=== PATIENT | male | born 1980 | race American Indian/Alaskan Native ===

== ENCOUNTER 2016-10-16 10:02 | Emergency (ER) | payer SELFPAY ==
--- NOTE | 2016-10-16 10:33 | Emergency Department Report ---
Chief Complaint: Abdominal Pain Stated Complaint: CHEST PAIN Time Seen by Provider: 10/16/16 10:20 - HPI History of Present Illness: Patient is a 36-year-old male who presents to the ED complaining of chest pain and abdominal pain since Friday. Patient states he has pain all over his chest and all over his abdomen. Patient admits nausea and vomiting. Patient's is a physically there is are not in the stomach. Patient admits the pain is constant. Patient rates the pain 10 out of 10. Denies fevers/chills/headache specialist of breath - ROS Review of Systems: As noted in HPI - Exam Vital Signs: Vital Signs 10/16/16 10:03 Temperature 97.7 F Pulse Rate 46 L Respiratory 24 Rate Blood Pressure 122/87 O2 Sat by Pulse 100 Oximetry Physical Exam: GENERAL: Alert and oriented x3, no apparent distress, Normal Gait, atraumatic. HEAD: Head is normocephalic and a-traumatic. NECK: Supple. Non edematous, No carotid bruits. No lymphadenopathy or thyromegaly. LUNGS: Symetrical with respiration, No wheezing, no rales or crackles, CTAB. HEART: S1, S2 present, regular rate and rhythm without murmur, no rubs, no gallops. Tender to palpation of left upper chest ABDOMEN: No organomegaly was noted,Positive bowel sounds, soft, and non- distended. . Tender to palpation on all Quadrants, NO CVA tenderness. SKIN: Warm and dry, No lesions, No ulceration or induration present. MSE screening note: Focused history and physical exam performed. Due to findings the following was ordered: ED Medical Decision Making - Lab Data Result diagrams: 10/16/16 10:47 10/16/16 10:47 - Medical Decision Making Chest and protocol and abdominal pain protocol ordered. Patient to be seen by ED physician. Zofran 16 mg ordered. ED Disposition for MSE Condition: Stable
[2016-10-16] MEDS ORDERED: ZOFRAN ODT PO ONE (10:39)
[2016-10-16 11:01] LABS: Basophils % (Auto) 0.7 % (0.0-1.8); Eosinophils % (Auto) 0.3 % (0.0-4.3); Hematocrit 46.5 % (35.5-45.6); Hemoglobin 15.7 gm/dl (11.8-15.2); Mean Corpuscular HGB Conc 34 % (32-34); Mean Corpuscular Hemoglobin 32 pg (28-32); Mean Corpuscular Volume 95 fl (84-94); Platelet Count 235 K/mm3 (140-440); Red Blood Count 4.88 M/mm3 (3.65-5.03); Red Cell Distribution Width 13.6 % (13.2-15.2); White Blood Count 6.9 K/mm3 (4.5-11.0)
[2016-10-16 11:24] LABS: Alanine Aminotransferase 25 units/L (7-56); Albumin 4.3 g/dL (3.9-5); Albumin/Globulin Ratio 1.3 %; Alkaline Phosphatase 60 units/L (35-129); Anion Gap 18 mmol/L; BUN/Creatinine Ratio 13.33; Bilirubin,Total 0.4 mg/dL (0.1-1.2); Blood Urea Nitrogen 12 mg/dL (9-20); Calcium 9.5 mg/dL (8.4-10.2); Carbon Dioxide 24 mmol/L (22-30); Chloride 98.4 mmol/L (98-107); Glucose 120 mg/dL (75-100); Lipase 45 units/L (13-60); Potassium 3.6 mmol/L (3.6-5.0); Sodium 137 mmol/L (137-145); Total Protein 7.6 g/dL (6.3-8.2)
[2016-10-16 13:09] VITALS: BP 125/63
[2016-10-16] MEDS ORDERED: MORPHINE IV ONE (13:39)
[2016-10-16] MEDS ORDERED: NACL 0.9% 1000 ML IV ONE ×2 (13:39→15:09)
[2016-10-16] MEDS ORDERED: ZOFRAN IV ONE (13:39)
--- NOTE | 2016-10-16 13:57 | Emergency Department Report ---
HPI - General Chief Complaint: Abdominal Pain Time Seen by Provider: 10/16/16 13:38 - HPI HPI: Chief complaint: Nausea vomiting abdominal pain HPI: Patient is a 36-year-old male whose complaining of epigastric abdominal pain and nausea and vomiting especially after eating since Friday. Patient denies diarrhea or melena. Patient denies previous history of abdominal surgery and states he drinks no more than 28 ounce beers today. Mode of arrival: [private car] Source: [Patient] Began: 2 days ago Duration: 2 days Context: See above Quality: Constant sharp upper abdominal pain Severity: 10 out of 10 Improved with: After vomiting patient states the pain is improved Worsened with: Vomiting worse after eating Associated signs and symptoms: See above ED Past Medical Hx - Past Medical History Previous Medical History?: No - Surgical History Past Surgical History?: No - Social History Smoking Status: Current Every Day Smoker Substance Use Type: Alcohol - Medications Home Medications: Home Medications Medication Instructions Recorded Confirmed Last Taken Type Metoclopramide [Reglan] 10 mg PO TID PRN #7 tab 10/16/16 Unknown Rx Omeprazole Magnesium [PriLOSEC Otc] 20 mg PO QDAY #10 tablet. 10/16/16 Unknown Rx ED Review of Systems ROS: Stated complaint: CHEST PAIN Other details as noted in HPI ROS Constitutional: No fever ENT: No uri symptoms Cardiovascular: No chest pain Respiratory: No sob or cough GI: See HPI : No dysuria frequency or urgency, Skin: No rash Neuro: No focal weakness or numbness Psych: No depression Deion/lymph: No edema Physical Exam - Physical Exam Vital Signs: Vital Signs 10/16/16 10/16/16 10:03 13:03 Temperature 97.7 F 97.8 F Pulse Rate 46 L 50 L Respiratory 24 16 Rate Blood Pressure 122/87 Blood Pressure 125/63 [Right] O2 Sat by Pulse 100 97 Oximetry Physical Exam: GENERAL: The patient is well-developed well-nourished. HEENT: Normocephalic. Atraumatic. Extraocular motions are intact. Patient has moist mucous membranes. NECK: Supple. No meningitic signs are noted. There is no adenopathy noted. CHEST/LUNGS: Clear to auscultation. There is no respiratory distress noted. HEART/CARDIOVASCULAR: Regular. There is no tachycardia. There is no gallop rub or murmur. ABDOMEN: Abdomen is soft, epigastric tenderness. Voluntary guarding no rebound. Patient has normal bowel sounds. There is no abdominal distention. SKIN: There is no rash. There is no edema. There is no diaphoresis. NEURO: The patient is awake, alert, and oriented. The patient is cooperative. The patient has no focal neurologic deficits. The patient has normal speech. MUSCULOSKELETAL: There is no tenderness or deformity. There is no limitation range of motion. There is no evidence of acute injury. ED Course Vital Signs 10/16/16 10/16/16 10:03 13:03 Temperature 97.7 F 97.8 F Pulse Rate 46 L 50 L Respiratory 24 16 Rate Blood Pressure 122/87 Blood Pressure 125/63 [Right] O2 Sat by Pulse 100 97 Oximetry - Reevaluation(s) Reevaluation #1: 10/16/16 15:10 Patient given a liter normal saline, Zofran and 4 mg of IV morphine with some improvement. 10/16/16 15:59 Patient was improved but has not urinated so another liter of normal saline was given along with some protonix and Reglan. Patient is improving. ED Medical Decision Making - Lab Data Result diagrams: 10/16/16 10:47 10/16/16 10:47 Laboratory Tests 10/16/16 10/16/16 10:47 13:16 Troponin T < 0.010 < 0.010 Lipase 45 - EKG Data -: EKG Interpreted by Wy EKG shows normal: sinus rhythm Rate: bradycardia (50) - EKG Data When compared to previous EKG there are: previous EKG unavailable Interpretation: LVH - Radiology Data Radiology results: report reviewed (CAT scan shows no acute process.) Critical care attestation.: If time is entered above; I have spent that time in minutes in the direct care of this critically ill patient, excluding procedure time. ED Disposition Clinical Impression: Abdominal pain Qualifiers: Abdominal location: right upper quadrant Qualified Code(s): R10.11 - Right upper quadrant pain Disposition: DISCHARGED TO HOME OR SELFCARE Is pt being admited?: No Does the pt Need Aspirin: No Condition: Stable Instructions: Acute Nausea and Vomiting (ED), Gastroesophageal Reflux Disease ( ED) Prescriptions: Metoclopramide [Reglan] 10 mg PO TID PRN #7 tab PRN Reason: Nausea And Vomiting Omeprazole Magnesium [PriLOSEC Otc] 20 mg PO QDAY #10 tablet. Referrals: [facility] [Provider Group] - 7-10 days Time of Disposition: 16:03
--- NOTE | 2016-10-16 14:03 | XRay Report ---
ABDOMEN RADIOGRAPHS INDICATION: Abdominal pain. COMPARISON: None similar. FINDINGS: Supine and upright abdominal radiographs demonstrate nonobstructive bowel gas pattern. No focal suspicious calcifications, pneumatosis or pneumoperitoneum. Mild ascending colon and rectal stool. Clear visualized lung bases. Unremarkable bones. CONCLUSION: Normal abdominal radiographs, as described. Thank you for the opportunity to participate in this patient's care.
[2016-10-16] MEDS ORDERED: NACL ONE (14:25)
--- NOTE | 2016-10-16 14:53 | XRay Report ---
CHEST 2 VIEWS INDICATION: Pain, shortness of breath. COMPARISON: None similar at this institution. FINDINGS: PA and lateral chest radiographs demonstrate normal cardiomediastinal silhouette. Clear lungs. Intact bones. CONCLUSION: No acute disease in the chest. Thank you for the opportunity to participate in this patient's care.
[2016-10-16] MEDS ORDERED: REGLAN IV ONE (15:06)
[2016-10-16] MEDS ORDERED: PROTONIX IV ONE (15:09)
--- NOTE | 2016-10-16 15:16 | Cat Scan Report ---
CT ABDOMEN AND PELVIS WITH CONTRAST INDICATION: Abdominal pain. COMPARISON: None similar. FINDINGS: Abdomen and pelvis CT performed following intravenous administration of 100 cc of Omnipaque 300. LUNG BASES: Normal heart size. No effusions. Nonspecific distal esophageal wall thickening, not excluded for gastroesophageal reflux and/or hiatal hernia, amongst others. ABDOMEN: Liver, spleen, gallbladder, pancreas, adrenals, nonaneurysmal abdominal aorta, IVC and kidneys are within normal limits bilaterally without hydronephrosis, ascites or size significant adenopathy. Nonopacified GI tract evaluation limited, though grossly nonobstructive. Normal appendix. Mild colonic stool, most along the ascending colon. Distal ascending colon about the hepatic flexure as on axial series 2, images 126-160 nondistended and hence nonspecific with subtle exaggerated wall thickness. PELVIS: Urinary bladder, seminal vesicles and prostate within normal limits. Right hemipelvic phlebolith. Rectosigmoid stool. No free fluid or significant adenopathy. No acute significant osseous finding. CONCLUSION: No convincing acute CT abnormality with distal esophageal thickening noted as also nonspecific CT appearance about the hepatic flexure with questionable wall thickening/subtle colitis versus suboptimal distention. Thank you for the opportunity to participate in this patient's care.
[2016-10-16 16:20] LABS: Urine Drugs of Abuse Note Disclamer
[2016-10-16 16:39] LABS: Bilirubin,Urine NEG (Negative); Blood,Urine NEG (Negative); Ketones,Urine TR mg/dL (Negative); Leukocyte Esterase,Urine NEG (Negative); Mucus,Urine FEW /HPF; Nitrite,Urine NEG (Negative); Protein,Urine <15 mg/dL mg/dL (Negative); Urobilinogen,Urine < 2.0 mg/dL (<2.0)
== END 2016-10-16 17:20 | disposition home or self-care (01) ==
LOC: ED 10:02
DX: R10.11 Right upper quadrant pain (principal); F17.200 Nicotine dependence, unspecified, uncomplicated
CPT/HCPCS: 36415; 71020; 74020; 74177; 80053; 80307; 81001; 83690; 84484; 85025; 93005; 93010; 96374; 96375; 99284; C9113; J2270; J2405; J2765; J7030; Q9967; Q0162

== ENCOUNTER 2016-12-26 08:13 | Emergency (ER) | payer OTHER ==
[2016-12-26 09:05] LABS: Basophils % (Auto) 0.4 % (0.0-1.8); Eosinophils % (Auto) 0.2 % (0.0-4.3); Hematocrit 51.4 % (35.5-45.6); Hemoglobin 17.5 gm/dl (11.8-15.2); Mean Corpuscular HGB Conc 34 % (32-34); Mean Corpuscular Hemoglobin 32 pg (28-32); Mean Corpuscular Volume 95 fl (84-94); Platelet Count 246 K/mm3 (140-440); Red Blood Count 5.42 M/mm3 (3.65-5.03); Red Cell Distribution Width 13.6 % (13.2-15.2); White Blood Count 8.5 K/mm3 (4.5-11.0)
[2016-12-26 09:12] LABS: Anion Gap 20 mmol/L; BUN/Creatinine Ratio 13.33; Blood Urea Nitrogen 12 mg/dL (9-20); Calcium 10.2 mg/dL (8.4-10.2); Carbon Dioxide 33 mmol/L (22-30); Glucose 101 mg/dL (75-100); Potassium 4.8 mmol/L (3.6-5.0); Sodium 138 mmol/L (137-145)
[2016-12-26 09:37] LABS: Bacteria,Urine 1+ /HPF (Negative); Bilirubin,Urine NEG (Negative); Blood,Urine NEG (Negative); Ketones,Urine TR mg/dL (Negative); Leukocyte Esterase,Urine NEG (Negative); Mucus,Urine 3+ /HPF; Nitrite,Urine NEG (Negative)
[2016-12-26] MEDS ORDERED: BENTYL IM ONE (13:26)
[2016-12-26] MEDS ORDERED: ZOFRAN IV ONE (13:26)
[2016-12-26] MEDS ORDERED: PEPCID IV ONE (13:26)
[2016-12-26] MEDS ORDERED: ATIVAN IV ONE (13:26)
[2016-12-26] MEDS ORDERED: NACL 0.9% 1000 ML 1,000 ML IV ONE (13:27)
--- NOTE | 2016-12-26 13:27 | Emergency Department Report ---
ED General Adult HPI - General Chief complaint: Chest Pain Stated complaint: GURD/CHEST PAIN Time Seen by Provider: 12/26/16 13:18 Source: patient, RN notes reviewed, old records reviewed Mode of arrival: Ambulatory Limitations: No Limitations - History of Present Illness Initial comments: This is a 36-year-old male. He is previously unknown to me. He does not have a primary care doctor. He is a presumptive diagnosis of GERD, although he has not had formal egd. He is a recreational cannabis user. The patient presents to the ER today complaining of epigastric chest pain, abdominal pain, nausea and vomiting. Symptoms started on Friday. He reports his abdominal pain is crampy and diffuse. He reports consuming quite a bit of cannabis. He does not use cocaine. There is no leg pain. There is no leg swelling. No recent trips greater than 4 hours. No recent hospital admissions. The patient reports he has not consumed aspirin within the past 7 days. There is no family history of cardiac disease that he is aware of. Patient reports his symptoms markedly improve when he takes a hot shower. The patient was seen at this hospital for similar symptoms in the [place] 2016, and had a CT scan of the abdomen and pelvis with IV contrast which demonstrated "no convincing acute CT abnormality with distal esophageal thickening noted has also nonspecific CT periods about the hepatic flexure with questionable wall thickening/subtle colitis versus suboptimal distention." The patient reports that he can do a lot of heavy lifting at baseline, he works out quite a bit, he describes no change and unlimited exercise tolerance. He is not homicidal, he is not suicidal. -: Gradual Location: chest, abdomen Quality: aching Consistency: intermittent Improves with: other (per hpi) Worsens with: other (pernhpi) Associated Symptoms: chest pain, nausea/vomiting. denies: shortness of breath - Related Data Previous Rx's Medication Instructions Recorded Last Taken Type Metoclopramide [Reglan] 10 mg PO TID PRN #7 tab 10/16/16 Unknown Rx Omeprazole Magnesium [PriLOSEC Otc] 20 mg PO QDAY #10 tablet. 10/16/16 Unknown Rx Dicyclomine [Bentyl] 10 mg PO QID PRN #20 capsule 12/26/16 Unknown Rx Famotidine [Pepcid] 20 mg PO QDAY #30 tablet 12/26/16 Unknown Rx Ondansetron [Zofran Odt] 4 mg PO QID PRN #20 tab.rapdis 12/26/16 Unknown Rx Promethazine [Phenergan SUPPOS] 50 mg DE Q6H PRN #20 supp.rect 12/26/16 Unknown Rx Allergies Allergy/AdvReac Type Severity Reaction Status Date / Time No Known Allergies Allergy Unverified 10/16/16 10:16 ED Review of Systems ROS: Stated complaint: GURD/CHEST PAIN Other details as noted in HPI Constitutional: denies: fever Eyes: denies: vision change ENT: denies: epistaxis Respiratory: denies: cough Cardiovascular: chest pain Gastrointestinal: abdominal pain, nausea, vomiting Genitourinary: denies: testicular pain Skin: denies: lesions Neurological: denies: headache Psychiatric: denies: homicidal thoughts, suicidal thoughts ED Past Medical Hx - Past Medical History Hx GERD: Yes - Surgical History Past Surgical History?: No - Social History Smoking Status: Former Smoker Substance Use Type: Alcohol - Medications Home Medications: Home Medications Medication Instructions Recorded Confirmed Last Taken Type Metoclopramide [Reglan] 10 mg PO TID PRN #7 tab 10/16/16 Unknown Rx Omeprazole Magnesium [PriLOSEC Otc] 20 mg PO QDAY #10 tablet. 10/16/16 Unknown Rx Dicyclomine [Bentyl] 10 mg PO QID PRN #20 capsule 12/26/16 Unknown Rx Famotidine [Pepcid] 20 mg PO QDAY #30 tablet 12/26/16 Unknown Rx Ondansetron [Zofran Odt] 4 mg PO QID PRN #20 tab.rapdis 12/26/16 Unknown Rx Promethazine [Phenergan SUPPOS] 50 mg DE Q6H PRN #20 supp.rect 12/26/16 Unknown Rx ED Physical Exam - General Limitations: No Limitations General appearance: alert, in no apparent distress - Head Head exam: Present: atraumatic, normocephalic - Eye Eye exam: Present: normal appearance, EOMI. Absent: nystagmus - ENT ENT exam: Present: normal exam, normal orophraynx, mucous membranes moist, normal external ear exam - Neck Neck exam: Present: normal inspection, full ROM. Absent: tenderness, meningismus - Respiratory Respiratory exam: Present: normal lung sounds bilaterally. Absent: respiratory distress, wheezes, rales, rhonchi, stridor, chest wall tenderness, accessory muscle use, decreased breath sounds, prolonged expiratory - Cardiovascular Cardiovascular Exam: Present: regular rate, normal rhythm, normal heart sounds. Absent: bradycardia, tachycardia, irregular rhythm, systolic murmur, diastolic murmur, rubs, gallop - GI/Abdominal GI/Abdominal exam: Present: soft, normal bowel sounds. Absent: distended, tenderness, guarding, rebound, rigid, pulsatile mass - Rectal Rectal exam: Present: deferred - Extremities Exam Extremities exam: Present: normal inspection, full ROM, normal capillary refill. Absent: tenderness, pedal edema, joint swelling, calf tenderness - Back Exam Back exam: Present: normal inspection, full ROM. Absent: tenderness, CVA tenderness (R), CVA tenderness (L), muscle spasm, paraspinal tenderness, vertebral tenderness - Neurological Exam Neurological exam: Present: alert, oriented X3, normal gait, other (Extraocular movements intact. Tongue midline. No facial droop. Facial sensation intact to light touch in the V1, V2, V3 distribution bilaterally. 5 and 5 strength in 4 extremities.. Sensation is intact to light touch in 4 extremities.). Absent : motor sensory deficit - Psychiatric Psychiatric exam: Present: normal affect, normal mood. Absent: homicidal ideation, suicidal ideation - Skin Skin exam: Present: warm, dry, intact, normal color. Absent: rash ED Course Vital Signs 12/26/16 12/26/16 12/26/16 08:30 14:00 14:22 Temperature 98.2 F Pulse Rate 70 67 Respiratory 18 16 16 Rate Blood Pressure 128/92 Blood Pressure 130/87 [Left] O2 Sat by Pulse 99 100 97 Oximetry 12/26/16 12/26/16 12/26/16 14:54 14:56 14:58 Temperature Pulse Rate Respiratory Rate Blood Pressure 130/87 130/87 130/87 Blood Pressure [Left] O2 Sat by Pulse 97 97 96 Oximetry 12/26/16 12/26/16 12/26/16 14:59 15:00 15:02 Temperature Pulse Rate Respiratory Rate Blood Pressure 107/73 122/68 122/68 Blood Pressure [Left] O2 Sat by Pulse 96 95 95 Oximetry 12/26/16 12/26/16 12/26/16 15:04 15:06 15:08 Temperature Pulse Rate Respiratory Rate Blood Pressure 122/68 122/68 122/68 Blood Pressure [Left] O2 Sat by Pulse 96 97 97 Oximetry 12/26/16 12/26/16 12/26/16 15:09 15:10 15:12 Temperature Pulse Rate 74 Respiratory 14 Rate Blood Pressure 122/68 122/68 Blood Pressure 126/79 [Left] O2 Sat by Pulse 96 98 98 Oximetry 12/26/16 12/26/16 12/26/16 15:14 15:16 15:18 Temperature Pulse Rate Respiratory Rate Blood Pressure 122/68 122/68 122/68 Blood Pressure [Left] O2 Sat by Pulse 98 98 96 Oximetry 12/26/16 12/26/16 12/26/16 15:20 15:22 15:24 Temperature Pulse Rate Respiratory Rate Blood Pressure 122/68 122/68 122/68 Blood Pressure [Left] O2 Sat by Pulse 96 97 97 Oximetry 12/26/16 12/26/16 12/26/16 15:26 15:28 15:30 Temperature Pulse Rate Respiratory Rate Blood Pressure 122/68 122/68 124/78 Blood Pressure [Left] O2 Sat by Pulse 97 97 97 Oximetry 12/26/16 12/26/16 12/26/16 15:32 15:34 15:36 Temperature Pulse Rate Respiratory Rate Blood Pressure 124/78 124/78 124/78 Blood Pressure [Left] O2 Sat by Pulse 97 97 96 Oximetry 12/26/16 12/26/16 12/26/16 15:38 15:40 15:42 Temperature Pulse Rate Respiratory Rate Blood Pressure 124/78 124/78 124/78 Blood Pressure [Left] O2 Sat by Pulse 96 96 96 Oximetry 12/26/16 12/26/16 12/26/16 15:44 15:46 15:48 Temperature Pulse Rate Respiratory Rate Blood Pressure 124/78 124/78 124/78 Blood Pressure [Left] O2 Sat by Pulse 96 96 96 Oximetry 12/26/16 12/26/16 12/26/16 15:50 15:52 15:54 Temperature Pulse Rate Respiratory Rate Blood Pressure 124/78 124/78 124/78 Blood Pressure [Left] O2 Sat by Pulse 96 96 96 Oximetry 12/26/16 12/26/16 12/26/16 15:56 15:58 16:00 Temperature Pulse Rate Respiratory Rate Blood Pressure 124/78 124/78 103/65 Blood Pressure [Left] O2 Sat by Pulse 96 96 96 Oximetry 12/26/16 12/26/16 12/26/16 16:02 16:04 16:06 Temperature Pulse Rate Respiratory Rate Blood Pressure 103/65 103/65 103/65 Blood Pressure [Left] O2 Sat by Pulse 96 96 96 Oximetry 12/26/16 12/26/16 12/26/16 16:08 16:10 16:12 Temperature Pulse Rate Respiratory Rate Blood Pressure 103/65 103/65 103/65 Blood Pressure [Left] O2 Sat by Pulse 96 96 96 Oximetry 12/26/16 12/26/16 12/26/16 16:14 16:16 16:18 Temperature Pulse Rate Respiratory Rate Blood Pressure 103/65 103/65 103/65 Blood Pressure [Left] O2 Sat by Pulse 96 97 97 Oximetry 12/26/16 12/26/16 12/26/16 16:20 16:22 16:24 Temperature Pulse Rate Respiratory Rate Blood Pressure 103/65 103/65 103/65 Blood Pressure [Left] O2 Sat by Pulse 97 97 96 Oximetry 12/26/16 12/26/16 12/26/16 16:26 16:28 16:30 Temperature Pulse Rate Respiratory Rate Blood Pressure 103/65 103/65 108/72 Blood Pressure [Left] O2 Sat by Pulse 97 96 95 Oximetry - Reevaluation(s) Reevaluation #1: 12/26/16 14:24 Differential diagnosis: GERD, gastritis, pancreatitis, pneumonia, acute coronary syndrome, cyclic vomiting syndrome, cannabinoid hyperemesis syndrome Assessment and plan: 36-year-old male with abdominal pain, chest pain, nausea and vomiting. Patient had a CT scan at this facility a few months ago. He is afebrile with reassuring vital signs, low risk by JOVITA score, low risk by heart score, no pulmonary embolus or DVT risk factors, low risk by well's criteria, perc negative, and has unlimited exercise tolerance and is very physically well- developed. The patient is at very low risk for major adverse cardiac event. Symptoms also the consistent with cannabinoid hyperemesis syndrome. He is clinically sober at this time, and does not require 1013. He will be treated symptomatically. Serial EKGs are abnormal with left ventricular hypertrophy, borderline left bundle branch block, but not morphologically consistent with STEMI, and negative by [facility] criteria. The patient will be treated symptomatically, and we will discuss with cardiology , although I think the patient would be best served to follow up with outpatient gastroenterology, and to discontinue cannabis consumption. Reevaluation #2: 12/26/16 16:30 Patient has been observed in the emergency department for a prolonged period of time. He is able to tolerate liquid feeds. No active vomiting. Belly soft on repeat examination. The patient's EKGs are reviewed by the construction superintendent, Dr. Stacy Martinez, who agrees the patient is suitable to follow up as an outpatient for his abnormal EKG. ED Medical Decision Making - Lab Data Result diagrams: 12/26/16 08:38 12/26/16 08:38 Vital Signs 12/26/16 12/26/16 08:30 14:22 Temperature 98.2 F Pulse Rate 70 67 Respiratory 18 16 Rate Blood Pressure 128/92 Blood Pressure 130/87 [Left] O2 Sat by Pulse 99 97 Oximetry Labs 12/26/16 12/26/16 12/26/16 08:38 08:38 08:38 WBC 8.5 RBC 5.42 H Hgb 17.5 H Hct 51.4 H MCV 95 H MCH 32 MCHC 34 RDW 13.6 Plt Count 246 Lymph % (Auto) 31.0 [place] % (Auto) 13.8 H Eos % (Auto) 0.2 Baso % (Auto) 0.4 Lymph # 2.6 [place] # 1.2 H Eos # 0.0 Baso # 0.0 Seg Neutrophils % 54.6 Seg Neutrophils # 4.6 Sodium 138 Potassium 4.8 Chloride 90.0 L Carbon Dioxide 33 H Anion Gap 20 BUN 12 Creatinine 0.9 Estimated GFR > 60 BUN/Creatinine Ratio 13.33 Glucose 101 H Calcium 10.2 Troponin T < 0.010 Lipase 32 Urine Color Urine Turbidity Urine pH Ur Specific [place] Urine Protein Urine Glucose (UA) Urine Ketones Urine Blood Urine Nitrite Urine Bilirubin Urine Urobilinogen Ur Leukocyte Esterase Urine WBC (Auto) Urine RBC (Auto) Urine Bacteria (Auto) Urine Mucus 12/26/16 12/26/16 09:29 11:44 WBC RBC Hgb Hct MCV MCH MCHC RDW Plt Count Lymph % (Auto) [place] % (Auto) Eos % (Auto) Baso % (Auto) Lymph # [place] # Eos # Baso # Seg Neutrophils % Seg Neutrophils # Sodium Potassium Chloride Carbon Dioxide Anion Gap BUN Creatinine Estimated GFR BUN/Creatinine Ratio Glucose Calcium Troponin T < 0.010 Lipase Urine Color [place] Urine Turbidity Clear Urine pH 6.0 Ur Specific [place] 1.031 H Urine Protein 100 mg/dl Urine Glucose (UA) Neg Urine Ketones Tr Urine Blood Neg Urine Nitrite Neg Urine Bilirubin Neg Urine Urobilinogen 4.0 Ur Leukocyte Esterase Neg Urine WBC (Auto) 2.0 Urine RBC (Auto) 3.0 Urine Bacteria (Auto) 1+ Urine Mucus 3+ - EKG Data 12/26/16 14:26 EKG #1: Sinus bradycardia, left ventricular hypertrophy, borderline left bundle branch block, normal axis, normal intervals, not morphologically consistent with STEMI, when compared to prior EKG, nonspecific changes, LVH appears to be more prominent. EKG #2 demonstrates sinus bradycardia, 54 bpm, normal axis, normal intervals, persistent LVH, not morphologically consistent with STEMI, essentially unchanged from prior EKGs. - Radiology Data Radiology results: pending, image reviewed Critical care attestation.: If time is entered above; I have spent that time in minutes in the direct care of this critically ill patient, excluding procedure time. ED Disposition Clinical Impression: Abdominal pain Disposition: DISCHARGED TO HOME OR SELFCARE Is pt being admited?: No Does the pt Need Aspirin: No Condition: Stable Instructions: Cannabis Abuse (ED) Additional Instructions: Take the medications as directed. Avoid consumption of marijuana. This is the most likely etiology of your pain. Follow-up with either a primary care doctor or hack driver within the next [address] Alvarez is a local hack driver. Dr. Hendrix is a local primary care doctor. EKG demonstrated nonspecific abnormalities, these should be followed up by either primary care or cardiology within the next 2-[address] Hendrix is a local primary care doctor. Dr. Martinez is a local primary care construction superintendent. Return to the ER right away with new pain, worsened pain, migration of pain, fevers or chills, intractable nausea or vomiting, inability to tolerate liquid feeds. Prescriptions: Dicyclomine [Bentyl] 10 mg PO QID PRN #20 capsule PRN Reason: Pain Famotidine [Pepcid] 20 mg PO QDAY #30 tablet Ondansetron [Zofran Odt] 4 mg PO QID PRN #20 tab.rapdis PRN Reason: Nausea Promethazine [Phenergan SUPPOS] 50 mg DE Q6H PRN #20 supp.rect PRN Reason: Nausea Referrals: PRIMARY CARE, [Primary Care Provider] - 3-5 Days EDIE ALVAREZ MD [Staff Physician] - 3-5 Days SANJIV MARTINEZ MD [Staff Physician] - 3-5 Days NATALIO HENDRIX MD [Staff Physician] - 3-5 Days
--- NOTE | 2016-12-26 14:48 | XRay Report ---
CHEST ONE VIEW INDICATION: Chest pain. COMPARISON: 10/16/2016. FINDINGS: Portable, single, frontal chest radiograph demonstrates normal cardiomediastinal silhouette. Clear lungs. Unremarkable bones. CONCLUSION: No acute disease in the chest. Thank you for the opportunity to participate in this patient's care.
[2016-12-26 16:37] VITALS: BP 108/72
== END 2016-12-26 17:30 | disposition home or self-care (01) ==
LOC: ED 08:13
DX: R10.13 Epigastric pain (principal); K21.9 Gastro-esophageal reflux disease without esophagitis; Z87.891 Personal history of nicotine dependence
CPT/HCPCS: 36415; 71010; 80048; 81001; 83690; 84484; 85025; 93005; 93010; 96361; 96374; 96375; 99285; J0500; J2060; J2405; J7030

== ENCOUNTER 2017-03-10 12:09 | Emergency (ER) | payer OTHER ==
[2017-03-10 12:18] VITALS: BP 116/75
[2017-03-10] MEDS ORDERED: MOTRIN PO ONE (15:30)
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
== END 2017-03-10 17:02 | disposition home or self-care (01) ==
LOC: ED 12:09
DX: S16.1XXA Strain of muscle, fascia and tendon at neck level, initial encounter (principal); S13.4XXA Sprain of ligaments of cervical spine, initial encounter; K21.9 Gastro-esophageal reflux disease without esophagitis; F17.200 Nicotine dependence, unspecified, uncomplicated; F12.10 Cannabis abuse, uncomplicated; V49.49XA Driver injured in collision with other motor vehicles in traffic accident, initial encounter; Y93.9 Activity, unspecified; Y92.9 Unspecified place or not applicable; Y99.9 Unspecified external cause status
CPT/HCPCS: 72125; 99283

== ENCOUNTER 2019-01-16 16:21 | Inpatient (IN) | payer MEDICAID, OTHER ==
[2019-01-16] MEDS ORDERED: ZOFRAN IV ONE (16:59)
[2019-01-16] MEDS ORDERED: MORPHINE IV ONE (16:59)
[2019-01-16] MEDS ORDERED: NACL 0.9% 1000 ML IV ONE (16:59)
[2019-01-16] MEDS ORDERED: PEPCID IV ONE (17:01)
--- NOTE | 2019-01-16 17:02 | Emergency Department Report ---
ED General Adult HPI - General Chief complaint: Nausea/Vomiting/Diarrhea Stated complaint: N/V Time Seen by Provider: 01/16/19 16:49 Source: patient, EMS (ems notes not available at time of chart dictation), RN notes reviewed, old records reviewed Mode of arrival: Ambulatory Limitations: Physical Limitation - History of Present Illness Initial comments: This is a 38-year-old gentleman. I have evaluated this patient in the past. He does not have a local primary care doctor. He may have a history of GERD, gastritis. He reports that he personally does not consume cannabis. He reports that family members around him do consume cannabis. He presents to the emergency room with a complaint of abdominal pain. The abdominal pain is left lower quadrant. It radiates to the epigastric region. He describes multiple episodes of nonbloody, nonbilious emesis. He denies diarrhea. He denies testicular pain. He denies urinary symptoms. He reports left-sided chest pain, left-sided nontraumatic paracervical neck pain. He denies DVT, pulmonary embolus risk factors. He reports she's had similar symptoms like this in the past. He reports symptoms occasionally improved with taking a hot bath, or a hot shower. -: Gradual, days(s) Location: chest, abdomen Radiation: neck Quality: aching Consistency: constant Improves with: medication Worsens with: eating, movement - Related Data Home Medications Medication Instructions Recorded Confirmed Last Taken No Known Home Medications [No 01/17/19 01/17/19 Unknown Reported Home Medications] Allergies Allergy/AdvReac Type Severity Reaction Status Date / Time No Known Allergies Allergy Unverified 10/16/16 10:16 ED Review of Systems ROS: Stated complaint: N/V Other details as noted in HPI Constitutional: fever, malaise, weakness Eyes: denies: vision change ENT: denies: epistaxis Respiratory: denies: cough Cardiovascular: chest pain Gastrointestinal: nausea, vomiting Genitourinary: denies: testicular pain Musculoskeletal: back pain, arthralgia, myalgia Skin: denies: lesions Neurological: weakness Psychiatric: anxiety ED Past Medical Hx - Past Medical History Previous Medical History?: Yes Hx GERD: Yes - Surgical History Past Surgical History?: No - Social History Smoking Status: Former Smoker Substance Use Type: Alcohol, Marijuana - Medications Home Medications: Home Medications Medication Instructions Recorded Confirmed Last Taken Type No Known Home Medications [No 01/17/19 01/17/19 Unknown History Reported Home Medications] ED Physical Exam - General Limitations: No Limitations General appearance: alert, anxious - Head Head exam: Present: atraumatic, normocephalic - Eye Eye exam: Present: normal appearance, EOMI. Absent: nystagmus - ENT ENT exam: Present: normal exam, normal orophraynx, mucous membranes moist, normal external ear exam - Neck Neck exam: Present: normal inspection, full ROM, other (there is no midline cervical spine tenderness. There is reproducible para-muscular, paracervical tenderness). Absent: meningismus, lymphadenopathy, thyromegaly - Respiratory Respiratory exam: Present: normal lung sounds bilaterally. Absent: respiratory distress - Cardiovascular Cardiovascular Exam: Present: normal rhythm, bradycardia, normal heart sounds. Absent: irregular rhythm, systolic murmur, diastolic murmur, rubs, gallop - GI/Abdominal GI/Abdominal exam: Present: soft, tenderness, other (there is left lower quadrant tenderness). Absent: distended, guarding, rebound, rigid, pulsatile mass - Rectal Rectal exam: Present: deferred - exam: Present: normal inspection, other (there is no testicular tenderness. There is normal testicular lie bilaterally. There is normal cremasteric reflex bilaterally.). Absent: testicular tenderness External exam: Present: normal external exam, other (chaperoned by nurse Carlotta Vega) - Extremities Exam Extremities exam: Present: normal inspection, full ROM, other (2+ pulses noted in the bilateral upper, lower extremities. Compartments soft. No long bony tenderness. The pelvis is stable.). Absent: pedal edema, joint swelling, calf tenderness - Back Exam Back exam: Present: normal inspection, full ROM. Absent: tenderness, CVA tender ness (R), CVA tenderness (L) - Neurological Exam Neurological exam: Present: alert, other (Extraocular movements intact. Tongue midline. No facial droop. Facial sensation intact to light touch in the V1, V2, V3 distribution bilaterally. 5 and 5 strength in 4 extremities.. Sensation is intact to light touch in 4 extremities.). Absent: motor sensory deficit - Psychiatric Psychiatric exam: Present: anxious - Skin Skin exam: Present: warm, dry, intact, normal color. Absent: rash ED Course Vital Signs 01/16/19 01/16/19 01/16/19 16:30 17:02 17:16 Temperature 100.5 F H Pulse Rate 49 L 52 L 49 L Respiratory 16 21 13 Rate Blood Pressure 133/80 135/84 Blood Pressure [Left] O2 Sat by Pulse 97 100 100 Oximetry 01/16/19 01/16/19 01/16/19 18:18 18:39 19:00 Temperature 98.3 F Pulse Rate 39 L 42 L Respiratory 22 18 Rate Blood Pressure 132/80 132/80 Blood Pressure [Left] O2 Sat by Pulse 98 98 Oximetry 01/16/19 01/16/19 01/16/19 20:00 21:00 21:18 Temperature Pulse Rate 41 L 43 L 50 L Respiratory 15 19 9 L Rate Blood Pressure 132/80 Blood Pressure [Left] O2 Sat by Pulse 99 97 95 Oximetry 01/16/19 01/16/19 01/16/19 21:31 21:36 21:40 Temperature 99.1 F Pulse Rate 47 L 45 L 41 L Respiratory 13 18 10 L Rate Blood Pressure 135/77 135/77 Blood Pressure 135/77 [Left] O2 Sat by Pulse 98 100 99 Oximetry 01/16/19 01/16/19 01/16/19 21:50 22:00 22:10 Temperature Pulse Rate 40 L 41 L 46 L Respiratory 11 L 17 11 L Rate Blood Pressure 136/91 135/77 139/85 Blood Pressure [Left] O2 Sat by Pulse 98 98 98 Oximetry 01/16/19 01/16/19 01/16/19 22:20 22:30 22:40 Temperature Pulse Rate 42 L 44 L 60 Respiratory 23 19 15 Rate Blood Pressure 130/81 139/85 123/81 Blood Pressure [Left] O2 Sat by Pulse 98 97 100 Oximetry 01/16/19 01/16/19 01/16/19 22:50 23:00 23:10 Temperature Pulse Rate 48 L 40 L 46 L Respiratory 14 12 13 Rate Blood Pressure 114/70 114/70 130/80 Blood Pressure [Left] O2 Sat by Pulse 99 98 98 Oximetry 01/16/19 01/16/19 01/16/19 23:20 23:30 23:40 Temperature Pulse Rate 45 L 64 44 L Respiratory 10 L 14 14 Rate Blood Pressure 136/90 136/90 136/90 Blood Pressure [Left] O2 Sat by Pulse 100 99 98 Oximetry 01/17/19 01/17/19 00:08 00:48 Temperature 99.3 F Pulse Rate 40 L Respiratory 20 18 Rate Blood Pressure 129/76 Blood Pressure [Left] O2 Sat by Pulse 99 Oximetry - Reevaluation(s) Reevaluation #1: 01/16/19 18:53 Differential diagnosis, including but not limited to: Colitis, diverticulitis, inflammatory bowel disease, cyclic vomiting syndrome, cannabinoid hyperemesis syndrome, pericarditis, myocarditis, pneumonia, acute coronary syndrome, GERD, gastritis, Jacqueline-Willett tear, paracervical neck pain Assessment and plan: 38-year-old gentleman with a primary complaint of left lower quadrant abdominal pain, and subsequent development of chest pain, nausea vomiting, and left sided reproducible neck pain. Suspect cannabinoid hyperemesis syndrome. No DVT or pulmonary embolus risk factors, low risk by well's criteria, perc negative. Has equal pulses in the upper, lower extremities bilaterally, normotensive, with unremarkable x-ray of the chest. Aortic disease is unlikely. His EKG is morphologically abnormal. Clinically, he appears to be in a sinus rhythm. His EKG appears to be unchanged from her prior EKG. The EKG is transmitted to the internet sourcer on-call, Dr. Srivastava, who reviewed the patient's EKG today, and agreed that patient does not meet thrombolysis or calf criteria activation. Given his complaint of abdominal pain, low-grade fever, we will give the patient pain medication, nausea medication, obtain CT scan of the abdomen and pelvis. The patient was able to drink water. He is quite bradycardic, but normotensive. At one point in time, his heart rate decreased to 39 bpm. We will reassess after initial data points. Most likely we will admit for observation, supportive care, serial abdominal exams. Reevaluation #2: 01/16/19 20:[address] scan of the abdomen and pelvis is negative for acute disease. Repeat EKG, troponin pending. Hospital physician was paged to arrange admission. Reevaluation #3: 01/16/19 20:45 Patient resting comfortably, and in no acute distress. Repeat EKG shows sinus bradycardia, persistent left ventricular hypertrophy. Not consistent with ST elevation myocardial infarction. Motion artifact is noted. Reevaluation #4: 01/16/19 21:23 Dr. Griffin accepted to the medical service. Do not clinically suspect invasive bacterial illness at this time. ED Medical Decision Making - Lab Data Result diagrams: 01/16/19 17:12 01/16/19 17:12 Vital Signs 01/16/19 01/16/19 01/16/19 16:30 17:02 17:16 Temperature 100.5 F H Pulse Rate 49 L 52 L 49 L Respiratory 16 21 13 Rate Blood Pressure 133/80 135/84 O2 Sat by Pulse 97 100 100 Oximetry 01/16/19 01/16/19 18:18 18:39 Temperature 98.3 F Pulse Rate 39 L Respiratory 22 Rate Blood Pressure 132/80 O2 Sat by Pulse 98 Oximetry Lab Results 01/16/19 01/16/19 01/16/19 Range/Units 17:12 17:12 17:12 WBC 9.8 (4.5-11.0) K/mm3 RBC 4.83 (3.65-5.03) M/mm3 Hgb 16.0 H (11.8-15.2) gm/dl Hct 46.4 H (35.5-45.6) % MCV 96 H (84-94) fl MCH 33 H (28-32) pg MCHC 35 H (32-34) % RDW 13.2 (13.2-15.2) % Plt Count 212 (140-440) K/mm3 Lymph % (Auto) 16.2 (13.4-35.0) % [place] % (Auto) 7.6 H (0.0-7.3) % Eos % (Auto) 0.9 (0.0-4.3) % Baso % (Auto) 0.6 (0.0-1.8) % Lymph # 1.6 (1.2-5.4) K/mm3 [place] # 0.7 (0.0-0.8) K/mm3 Eos # 0.1 (0.0-0.4) K/mm3 Baso # 0.1 (0.0-0.1) K/mm3 Seg Neutrophils % 74.7 H (40.0-70.0) % Seg Neutrophils # 7.3 (1.8-7.7) K/mm3 APTT 26.9 (24.2-36.6) Sec. Sodium (137-145) mmol/L Potassium (3.6-5.0) mmol/L Chloride (98-107) mmol/L Carbon Dioxide (22-30) mmol/L Anion Gap mmol/L BUN (9-20) mg/dL Creatinine (0.8-1.5) mg/dL Estimated GFR ml/min BUN/Creatinine Ratio % Glucose (75-100) mg/dL Lactic Acid (0.7-2.0) mmol/L Calcium (8.4-10.2) mg/dL Magnesium (1.7-2.3) mg/dL Total Bilirubin (0.1-1.2) mg/dL AST (5-40) units/L ALT (7-56) units/L Alkaline Phosphatase (35-129) units/L Total Creatine Kinase (55-170) units/L Troponin T < 0.010 (0.00-0.029) ng/mL Total Protein (6.3-8.2) g/dL Albumin (3.9-5) g/dL Albumin/Globulin Ratio % Salicylates (2.8-20.0) mg/dL Acetaminophen (10.0-30.0) ug/mL Plasma/Serum Alcohol (0-0.07) % 01/16/19 01/16/19 01/16/19 Range/Units 17:12 17:12 17:12 WBC (4.5-11.0) K/mm3 RBC (3.65-5.03) M/mm3 Hgb (11.8-15.2) gm/dl Hct (35.5-45.6) % MCV (84-94) fl MCH (28-32) pg MCHC (32-34) % RDW (13.2-15.2) % Plt Count (140-440) K/mm3 Lymph % (Auto) (13.4-35.0) % [place] % (Auto) (0.0-7.3) % Eos % (Auto) (0.0-4.3) % Baso % (Auto) (0.0-1.8) % Lymph # (1.2-5.4) K/mm3 [place] # (0.0-0.8) K/mm3 Eos # (0.0-0.4) K/mm3 Baso # (0.0-0.1) K/mm3 Seg Neutrophils % (40.0-70.0) % Seg Neutrophils # (1.8-7.7) K/mm3 APTT (24.2-36.6) Sec. Sodium 142 (137-145) mmol/L Potassium 3.2 L (3.6-5.0) mmol/L Chloride 99.0 (98-107) mmol/L Carbon Dioxide 25 (22-30) mmol/L Anion Gap 21 mmol/L BUN 15 (9-20) mg/dL Creatinine 1.1 (0.8-1.5) mg/dL Estimated GFR > 60 ml/min BUN/Creatinine Ratio 14 % Glucose 104 H (75-100) mg/dL Lactic Acid 2.20 H* (0.7-2.0) mmol/L Calcium 10.5 H (8.4-10.2) mg/dL Magnesium 1.80 (1.7-2.3) mg/dL Total Bilirubin 0.90 (0.1-1.2) mg/dL AST 21 (5-40) units/L ALT 22 (7-56) units/L Alkaline Phosphatase 54 (35-129) units/L Total Creatine Kinase 353 H (55-170) units/L Troponin T < 0.010 (0.00-0.029) ng/mL Total Protein 8.0 (6.3-8.2) g/dL Albumin 4.7 (3.9-5) g/dL Albumin/Globulin Ratio 1.4 % Salicylates < 0.3 L (2.8-20.0) mg/dL Acetaminophen (10.0-30.0) ug/mL Plasma/Serum Alcohol (0-0.07) % 01/16/19 01/16/19 Range/Units 17:12 17:12 WBC (4.5-11.0) K/mm3 RBC (3.65-5.03) M/mm3 Hgb (11.8-15.2) gm/dl Hct (35.5-45.6) % MCV (84-94) fl MCH (28-32) pg MCHC (32-34) % RDW (13.2-15.2) % Plt Count (140-440) K/mm3 Lymph % (Auto) (13.4-35.0) % [place] % (Auto) (0.0-7.3) % Eos % (Auto) (0.0-4.3) % Baso % (Auto) (0.0-1.8) % Lymph # (1.2-5.4) K/mm3 [place] # (0.0-0.8) K/mm3 Eos # (0.0-0.4) K/mm3 Baso # (0.0-0.1) K/mm3 Seg Neutrophils % (40.0-70.0) % Seg Neutrophils # (1.8-7.7) K/mm3 APTT (24.2-36.6) Sec. Sodium (137-145) mmol/L Potassium (3.6-5.0) mmol/L Chloride (98-107) mmol/L Carbon Dioxide (22-30) mmol/L Anion Gap mmol/L BUN (9-20) mg/dL Creatinine (0.8-1.5) mg/dL Estimated GFR ml/min BUN/Creatinine Ratio % Glucose (75-100) mg/dL Lactic Acid (0.7-2.0) mmol/L Calcium (8.4-10.2) mg/dL Magnesium (1.7-2.3) mg/dL Total Bilirubin (0.1-1.2) mg/dL AST (5-40) units/L ALT (7-56) units/L Alkaline Phosphatase (35-129) units/L Total Creatine Kinase (55-170) units/L Troponin T (0.00-0.029) ng/mL Total Protein (6.3-8.2) g/dL Albumin (3.9-5) g/dL Albumin/Globulin Ratio % Salicylates (2.8-20.0) mg/dL Acetaminophen < 5.0 L (10.0-30.0) ug/mL Plasma/Serum Alcohol < 0.01 (0-0.07) % - EKG Data 01/16/19 18:56 This is a bradycardic rhythm, borderline left bundle branch block, high left ventricular voltage, poor wave progression, question sinus versus junctional rhythm, P waves noted, this is an abnormal EKG, appears to have nonspecific changes when compared to prior EKG from 2016. - Radiology Data Radiology results: report reviewed, image reviewed X-ray of the chest is negative for acute disease Critical care attestation.: If time is entered above; I have spent that time in minutes in the direct care of this critically ill patient, excluding procedure time. ED Disposition Clinical Impression: Bradycardia, Acute febrile illness, Abnormal EKG Disposition: [id number] OP ADMIT IP TO THIS HOSP Is pt being admited?: Yes Condition: Stable
[2019-01-16 17:25] LABS: Basophils # (Auto) 0.1 K/mm3 (0.0-0.1); Basophils % (Auto) 0.6 % (0.0-1.8); Eosinophils # (Auto) 0.1 K/mm3 (0.0-0.4); Eosinophils % (Auto) 0.9 % (0.0-4.3); Hematocrit 46.4 % (35.5-45.6); Lymphocytes # (Auto) 1.6 K/mm3 (1.2-5.4); Lymphocytes % (Auto) 16.2 % (13.4-35.0); Mean Corpuscular HGB Conc 35 % (32-34); Mean Corpuscular Volume 96 fl (84-94); Monocytes # (Auto) 0.7 K/mm3 (0.0-0.8); Monocytes % (Auto) 7.6 % (0.0-7.3); Platelet Count 212 K/mm3 (140-440); Red Blood Count 4.83 M/mm3 (3.65-5.03); Red Cell Distribution Width 13.2 % (13.2-15.2)
[2019-01-16] MEDS ORDERED: TYLENOL PO ONE (17:26)
--- NOTE | 2019-01-16 17:40 | XRay Report ---
PROCEDURE: XR CHEST 1V AP TECHNIQUE: Chest radiograph single view. HISTORY: CP COMPARISONS: CXR 12/26/2016 . FINDINGS: Heart: Normal. Mediastinum/Vessels: Normal. Lungs/Pleural space: Normal. Bony thorax: No acute osseous abnormality. Life support devices: None. IMPRESSION: No acute cardiopulmonary abnormality. No change This document is electronically signed by Carlotta Du MD., Jan 16 2019 05:38:28 PM ET
[2019-01-16 17:51] LABS: Alanine Aminotransferase 22 units/L (7-56); Albumin 4.7 g/dL (3.9-5); BUN/Creatinine Ratio 14; Blood Urea Nitrogen 15 mg/dL (9-20); Calcium 10.5 mg/dL (8.4-10.2); Hemolysis Index 33
[2019-01-16] MEDS ORDERED: K-DUR PO ONE (18:13)
[2019-01-16] MEDS: KCL 10MEQ/100ML 10 MEQ/100 ML BAG IV SCH ×3 (18:39→22:55)
--- NOTE | 2019-01-16 20:15 | Cat Scan Report ---
PROCEDURE: CT ABDOMEN PELVIS W CON TECHNIQUE: Computerized axial tomography of the abdomen and pelvis was performed with intravenous co ntrast. CONTRAST: CT DOSE LENGTH PRODUCT: 964.8 mGycm HISTORY: abd pain n/v/ fever COMPARISONS: None . FINDINGS: Visualized lower thorax: No significant abnormality. Liver: Normal size and attenuation. Spleen: Normal size and attenuation. Gallbladder and biliary system: Normal. Pancreas: Normal. Adrenals: Normal. Kidneys: Normal. GI tract: Normal . Appendix is normal. Lymph nodes and mesentery: Normal. Vasculature: Normal.. Bladder: Normal. Reproductive organs: Normal. Peritoneum: Trace free fluid in the pelvis. Musculoskeletal structures: No significant abnormality. Other: None. IMPRESSION: Normal examination of the abdomen and pelvis . This document is electronically signed by Carlotta Du MD., Jan 16 2019 08:13:02 PM ET
[2019-01-16] MEDS ORDERED: TYLENOL PO PRN (21:40)
[2019-01-16] MEDS ORDERED: ZOFRAN IV PRN (21:40)
[2019-01-16] MEDS ORDERED: SODIUM CHLORIDE FLUSH SYRINGE 10 ML IV PRN (21:40)
--- NOTE | 2019-01-16 21:40 | History and Physical Report ---
History of Present Illness Date of examination: 01/16/19 History of present illness: 38-year-old man with history of GERD comes to the emergency room with complains of nausea vomiting test 3 days, unable to tolerate oral intake, also complaining of left flank pain for 2 days which she described as a hurting pain, constant, no radiation, intensity 4/10, cannot identify exacerbating or relieving factors. Also complain of chest pain in the epigastric area for 1 day. he describes it as a hurting pain, constant, intensity 6/10, no radiation, worse after vomiting. Admits to using marijuana edibles, hasn't used in a while Review of systems Constitutional: no weight loss, chills, fever Ears, eyes, nose, mouth and throat: no nasal congestion, no nasal discharge, no sinus pressure, no vision change, no red eye. Neck: No neck pain or rigidity. Cardiovascular: no palpitation Respiratory: no cough, shortness breath, diaphoresis Gastrointestinal: no hematochezia, abdominal pain Genitourinary : no frequency , no hematuria Musculoskeletal: no joint swelling or muscle ache Integumentary: no rash, no pruritis Neurological: no parathesias, no focal weakness Endocrine: no cold or heat intolerance, no polyuria or polydipsia Hematologic/Lymphatic: no easy bruising, no easy bleeding, no gland swelling Allergic/Immunologic: no urticaria, no angioedema. PAST MEDICAL HISTORY:GERD PAST SURGICAL HISTORY: None SOCIAL HISTORY: Denies alcohol, +marijuana, +tobacco FAMILY HISTORY: Hypertension Medications and Allergies Allergies Allergy/AdvReac Type Severity Reaction Status Date / Time No Known Allergies Allergy Unverified 10/16/16 10:16 Home Medications Medication Instructions Recorded Confirmed Last Taken Type Metoclopramide [Reglan] 10 mg PO TID PRN #7 tab 10/16/16 Unknown Rx Omeprazole Magnesium [PriLOSEC Otc] 20 mg PO QDAY #10 tablet. 10/16/16 Unknown Rx Dicyclomine [Bentyl] 10 mg PO QID PRN #20 capsule 12/26/16 Unknown Rx Famotidine [Pepcid] 20 mg PO QDAY #30 tablet 12/26/16 Unknown Rx Ondansetron [Zofran Odt] 4 mg PO QID PRN #20 tab.maria luisa 12/26/16 Unknown Rx Promethazine [Phenergan SUPPOS] 50 mg MS Q6H PRN #20 supp.rect 12/26/16 Unknown Rx Cyclobenzaprine [Flexeril] 10 mg PO TID PRN #15 tablet 03/10/17 Unknown Rx Ibuprofen [Motrin 600 MG tab] 600 mg PO Q8H PRN #20 tablet 03/10/17 Unknown Rx Active Meds: Active Medications Potassium Chloride (Kcl 10meq/100ml) 10 meq in 100 mls @ 100 mls/hr IV Q1H SUE Stop: 01/16/19 21:59 Last Admin: 01/16/19 18:39 Dose: 100 mls/hr Documented by: Exam - Physical Exam Narrative exam: General Apperance: The patient lying in bed, breathing comfortable HEENT: Normocephalic, atraumatic. Pupils equally round and reactive to light, EOMI, no sclericterus or JVD or thyromegaly or nodule. , no carotid bruit, mucous membranes moist, no exudate or erythema Heart: S1-S2, regular is rhythm Lungs: Clear to auscultation bilaterally, breathing comfortable Abdomen: Positive bowel sounds, soft, nontender, nondistended, no organomegaly Extremities: No edema cyanosis clubbing Skin: no rash, nodule, warm and dry Neuro: cranial nerves 2-12 intact, speech is fluent, motor/sensory intact - Constitutional Vitals: Temp Pulse Resp BP Pulse Ox 99.1 F 45 L 18 135/77 100 01/16/19 21:36 01/16/19 21:36 01/16/19 21:36 01/16/19 21:36 01/16/19 21:36 Results - Labs CBC & Chem 7: 01/16/19 17:12 01/16/19 17:12 Labs: Abnormal lab results 01/16/19 01/16/19 01/16/19 Range/Units 17:12 17:12 17:12 Hgb 16.0 H (11.8-15.2) gm/dl Hct 46.4 H (35.5-45.6) % MCV 96 H (84-94) fl MCH 33 H (28-32) pg MCHC 35 H (32-34) % [place] % (Auto) 7.6 H (0.0-7.3) % Seg Neutrophils % 74.7 H (40.0-70.0) % Potassium 3.2 L (3.6-5.0) mmol/L Glucose 104 H (75-100) mg/dL Lactic Acid 2.20 H* (0.7-2.0) mmol/L Calcium 10.5 H (8.4-10.2) mg/dL Total Creatine Kinase 353 H (55-170) units/L Salicylates (2.8-20.0) mg/dL Acetaminophen (10.0-30.0) ug/mL 01/16/19 01/16/19 Range/Units 17:12 17:12 Hgb (11.8-15.2) gm/dl Hct (35.5-45.6) % MCV (84-94) fl MCH (28-32) pg MCHC (32-34) % [place] % (Auto) (0.0-7.3) % Seg Neutrophils % (40.0-70.0) % Potassium (3.6-5.0) mmol/L Glucose (75-100) mg/dL Lactic Acid (0.7-2.0) mmol/L Calcium (8.4-10.2) mg/dL Total Creatine Kinase (55-170) units/L Salicylates < 0.3 L (2.8-20.0) mg/dL Acetaminophen < 5.0 L (10.0-30.0) ug/mL - Imaging and Cardiology EKG: image reviewed Chest x-ray: report reviewed CT scan - abdomen: report reviewed CT scan - pelvis: report reviewed Assessment and Plan Assessment Chest pain Bradycardia SIRS Plan Admit to medicine check cardiac enzymes, Consult cardiology Start aspirin, percocet, IV levaquin DVT prophalaxis
[2019-01-16 21:49] LABS: Bilirubin,Urine NEG (Negative); Blood,Urine NEG (Negative); Color,Urine Yellow (Yellow); Mucus,Urine 2+ /HPF; Urobilinogen,Urine < 2.0 mg/dL (<2.0)
[2019-01-16 22:15] LABS: Amphetamine Screen,Urine PRESUMPTIVE NEGATIVE; Benzodiazepines Screen,Urine PRESUMPTIVE NEGATIVE; Cocaine Screen,Urine PRESUMPTIVE NEGATIVE; Methadone Screen,Urine PRESUMPTIVE NEGATIVE
[2019-01-16 22:28] LABS: Cannabinoid Screen,Urine PRESUMPTIVE POSITIVE; Opiate Screen,Urine PRESUMPTIVE POSITIVE
[2019-01-16] MEDS ORDERED: LEVAQUIN 500MG/100ML 500 MG/100 ML BAG IV ONE (23:00)
[2019-01-16] MEDS ORDERED: ZOFRAN ONE (23:11)
[2019-01-16 23:19] LABS: Creatine Kinase MB 1.6 ng/mL (0.0-4.0)
[2019-01-16] MEDS: LEVAQUIN 500MG/100ML 500 MG/100 ML BAG IV SCH (23:25)
[2019-01-16] MEDS ORDERED: ASPIRIN PO ONE (23:26)
[2019-01-17] MEDS: REGLAN IV PRN ×3 (00:35→21:28)
[2019-01-17] MEDS: PERCOCET 5/325 PO PRN ×3 (00:56→21:29)
[2019-01-17 08:16] LABS: Basophils % (Auto) 0.6 % (0.0-1.8); Eosinophils % (Auto) 0.1 % (0.0-4.3); Hematocrit 41.6 % (35.5-45.6); Hemoglobin 14.4 gm/dl (11.8-15.2); Lymphocytes # (Auto) 1.6 K/mm3 (1.2-5.4); Lymphocytes % (Auto) 22.8 % (13.4-35.0); Mean Corpuscular HGB Conc 35 % (32-34); Mean Corpuscular Volume 97 fl (84-94); Monocytes # (Auto) 0.7 K/mm3 (0.0-0.8); Monocytes % (Auto) 10.3 % (0.0-7.3); Platelet Count 179 K/mm3 (140-440); Red Cell Distribution Width 13.4 % (13.2-15.2)
[2019-01-17 08:29] LABS: Creatine Kinase MB 1.5 ng/mL (0.0-4.0)
[2019-01-17 08:34] LABS: BUN/Creatinine Ratio 12; Blood Urea Nitrogen 14 mg/dL (9-20); Calcium 9.4 mg/dL (8.4-10.2); Hemolysis Index 7
--- NOTE | 2019-01-17 09:44 | Consultation ---
History of Present Illness Consult date: 01/17/19 Consult reason: chest pain History of present illness: 58 year old -[place] male who presents with three day history of vomitin g. He states that 3 days ago he had a vyb[id number]-obwhu sandwich and about 30 minutes after started having vomiting and with some retrosternal burning sensation he denies fever chills all diarrhea patient was then admitted for further evaluation of his vomiting he denies any problems cardiac history. Past History Past Medical History: No medical history Past Surgical History: No surgical history Social history: no significant social history Family history: no significant family history Medications and Allergies Allergies Allergy/AdvReac Type Severity Reaction Status Date / Time No Known Allergies Allergy Unverified 10/16/16 10:16 Home Medications Medication Instructions Recorded Confirmed Last Taken Type No Known Home Medications [No 01/17/19 01/17/19 Unknown History Reported Home Medications] Active Meds: Active Medications Acetaminophen (Tylenol) 650 mg PO Q4H PRN PRN Reason: Pain MILD(1-3)/Fever >100.5/AYON Enoxaparin Sodium (Lovenox) 40 mg SUB-Q QDAY@1000 SUE Levofloxacin/Dextrose (Levaquin 500mg/100ml) 500 mg in 100 mls @ 100 mls/hr IV Q24HR@2200 SUE; Protocol Last Admin: 01/16/19 23:25 Dose: 100 mls/hr Documented by: Metoclopramide HCl (Reglan) 10 mg IV Q6H PRN PRN Reason: Nausea And Vomiting Last Admin: 01/17/19 00:35 Dose: 10 mg Documented by: Ondansetron HCl (Zofran) 4 mg IV Q8H PRN PRN Reason: Nausea And Vomiting Last Admin: 01/16/19 23:20 Dose: 4 mg Documented by: Oxycodone/Acetaminophen (Percocet 5/325) 1 tab PO Q4H PRN PRN Reason: Pain, Moderate (4-6) Last Admin: 01/17/19 07:56 Dose: 1 tab Documented by: Sodium Chloride (Sodium Chloride Flush Syringe 10 Ml) 10 ml IV BID [facility] Last Admin: 01/17/19 00:00 Dose: Not Given Documented by: Sodium Chloride (Sodium Chloride Flush Syringe 10 Ml) 10 ml IV PRN PRN PRN Reason: LINE FLUSH Review of Systems Constitutional: no weight loss, no weight gain, no fever, no chills Ears, nose, mouth and throat: no ear pain, no ear discharge, no tinnitis, no nose pain Cardiovascular: no chest pain, no orthopnea, no palpitations, no dyspnea on exertion, no paroxysmal nocturnal dyspnea, no high blood pressure, no leg edema Respiratory: no cough, no cough with sputum, no hemoptysis, no shortness of breath Gastrointestinal: nausea, vomiting, no diarrhea, no hematemesis, no melena, no hematochezia Genitourinary Male: dysuria, nocturia Musculoskeletal: no neck stiffness, no neck pain, no redness of joints, no hot joints Integumentary: no deferred, no rash, no pruritis Neurological: no paralysis, no weakness, no parathesias, no numbness, no vertigo, no headaches Endocrine: no cold intolerance, no heat intolerance, no polyphagia, no excessive thirst, no polydipsia, no polyuria Hematologic/Lymphatic: no easy bruising, no easy bleeding Allergic/Immunologic: no urticaria, no wheezing Physical Examination Vital Signs Temp Pulse Resp BP Pulse Ox 100.5 F H 49 L 16 133/80 97 01/16/19 16:30 01/16/19 16:30 01/16/19 16:30 01/16/19 16:30 01/16/19 16:30 General appearance: no acute distress, well-nourished HEENT: Positive: PERRL, Mucus Membranes Moist Neck: Positive: neck supple, trachea midline Cardiac: Positive: Reg Rate and Rhythm, S1/S2. Negative: Audible Murmur Lungs: Positive: clear to auscultation, Normal Breath Sounds Neuro: Positive: Grossly Intact Abdomen: Positive: Soft, Active Bowel Sounds. Negative: Tender, Distended Male genitourinary: Positive: normal Skin: Positive: Clear Incision: Cardiac Cath Site Musculoskeletal: No Pain, Normal Range of Motion Extremities: Present: normal. Absent: edema Results 01/17/19 07:21 01/17/19 07:21 Cardiac Enzymes 01/16/19 01/16/19 01/17/19 Range/Units 17:12 22:41 07:21 AST 21 (5-40) units/L CK-MB (CK-2) 1.6 1.5 (0.0-4.0) ng/mL Coagulation 01/16/19 Range/Units 17:12 APTT 26.9 (24.2-36.6) Sec. CBC 01/16/19 01/17/19 Range/Units 17:12 07:21 WBC 9.8 6.9 (4.5-11.0) K/mm3 RBC 4.83 4.30 (3.65-5.03) M/mm3 Hgb 16.0 H 14.4 (11.8-15.2) gm/dl Hct 46.4 H 41.6 (35.5-45.6) % Plt Count 212 179 (140-440) K/mm3 Lymph # 1.6 1.6 (1.2-5.4) K/mm3 [place] # 0.7 0.7 (0.0-0.8) K/mm3 Eos # 0.1 0.0 (0.0-0.4) K/mm3 Baso # 0.1 0.0 (0.0-0.1) K/mm3 Comprehensive Metabolic Panel 01/16/19 01/17/19 Range/Units 17:12 07:21 Sodium 142 143 (137-145) mmol/L Potassium 3.2 L 4.2 D (3.6-5.0) mmol/L Chloride 99.0 103.6 (98-107) mmol/L Carbon Dioxide 25 28 (22-30) mmol/L BUN 15 14 (9-20) mg/dL Creatinine 1.1 1.2 (0.8-1.5) mg/dL Glucose 104 H 98 (75-100) mg/dL Calcium 10.5 H 9.4 (8.4-10.2) mg/dL AST 21 (5-40) units/L ALT 22 (7-56) units/L Alkaline Phosphatase 54 (35-129) units/L Total Protein 8.0 (6.3-8.2) g/dL Albumin 4.7 (3.9-5) g/dL - EKG Interpretation EKG: sinus rhythm, normal axis EKG interpretations - Telemetry EKG Rhythm: Sinus Rhythm - EKG Sinus rhythms and dysrhythmias: sinus rhythm Assessment and Plan 1. GERD with acute gastritis and vomiting 2. Serum troponin levels are normal EKG does not reveal any ischemic changes presentation is not consistent with acute coronary syndrome Plan. Recommend GI consult.
[2019-01-17] MEDS: LOVENOX SUB-Q SCH (09:50)
[2019-01-17] MEDS: SODIUM CHLORIDE FLUSH SYRINGE 10 ML IV SCH ×2 (09:57)
[2019-01-17] MEDS ORDERED: LOVENOX SUB-Q SCH (10:00)
--- NOTE | 2019-01-17 10:55 | Progress Note ---
Assessment and Plan Assessment and plan: Sinus bradycardia. HR in upper 30s and 40s Get FT4, TSH Cardiology following Chest pain is lower chest, almost epigastric. cardiac enzymes neg GERD started on Protonix Follow with GI as outpatient SIRS Hypokalemia Replaced, resolved marijuana use. I counseled him on importance of quitting Full code status History Interval history: Chest pain Epigastric pain nausea and vomiting Hospitalist Physical - Physical exam Narrative exam: Gen: Not in acute distress, lying in bed, obese HEENT: Normocephalic, atraumatic Neck: supple, no JVD Heart: S1 and S2 reg, no murmurs, rubs or gallop Lungs: Clear, no crackles, no wheeze Abd: soft, non tender, non distended, normal BS Ext: No edema, no clubbing, no cyanosis, Neuro: Awake,alert, oriented x 3, moves all ext, non focal Psych:Normal mood - Constitutional Vitals: Temp Pulse Resp BP Pulse Ox 99.1 F 42 L 16 133/84 100 01/17/19 08:58 01/17/19 08:58 01/17/19 08:58 01/17/19 08:58 01/17/19 08:58 General appearance: Present: no acute distress, well-nourished Results - Labs CBC & Chem 7: 01/17/19 07:21 01/17/19 07:21 Labs: Laboratory Last Values WBC 6.9 K/mm3 (4.5-11.0) 01/17/19 07:21 RBC 4.30 M/mm3 (3.65-5.03) 01/17/19 07:21 Hgb 14.4 gm/dl (11.8-15.2) 01/17/19 07:21 Hct 41.6 % (35.5-45.6) 01/17/19 07:21 MCV 97 fl (84-94) H 01/17/19 07:21 MCH 34 pg (28-32) H 01/17/19 07:21 MCHC 35 % (32-34) H 01/17/19 07:21 RDW 13.4 % (13.2-15.2) 01/17/19 07:21 Plt Count 179 K/mm3 (140-440) 01/17/19 07:21 Lymph % (Auto) 22.8 % (13.4-35.0) 01/17/19 07:21 [place] % (Auto) 10.3 % (0.0-7.3) H 01/17/19 07:21 Eos % (Auto) 0.1 % (0.0-4.3) 01/17/19 07:21 Baso % (Auto) 0.6 % (0.0-1.8) 01/17/19 07:21 Lymph # 1.6 K/mm3 (1.2-5.4) 01/17/19 07:21 [place] # 0.7 K/mm3 (0.0-0.8) 01/17/19 07:21 Eos # 0.0 K/mm3 (0.0-0.4) 01/17/19 07:21 Baso # 0.0 K/mm3 (0.0-0.1) 01/17/19 07:21 Seg Neutrophils % 66.2 % (40.0-70.0) 01/17/19 07:21 Seg Neutrophils # 4.6 K/mm3 (1.8-7.7) 01/17/19 07:21 APTT 26.9 Sec. (24.2-36.6) 01/16/19 17:12 Sodium 143 mmol/L (137-145) 01/17/19 07:21 Potassium 4.2 mmol/L (3.6-5.0) D 01/17/19 07:21 Chloride 103.6 mmol/L (98-107) 01/17/19 07:21 Carbon Dioxide 28 mmol/L (22-30) 01/17/19 07:21 16 mmol/L 01/17/19 07:21 BUN 14 mg/dL (9-20) 01/17/19 07:21 1.2 mg/dL (0.8-1.5) 01/17/19 07:21 Estimated GFR > 60 ml/min 01/17/19 07:21 12 % 01/17/19 07:21 Glucose 98 mg/dL (75-100) 01/17/19 07:21 Lactic Acid 1.50 mmol/L (0.7-2.0) 01/16/19 18:03 Calcium 9.4 mg/dL (8.4-10.2) 01/17/19 07:21 Magnesium 1.80 mg/dL (1.7-2.3) 01/16/19 17:12 0.90 mg/dL (0.1-1.2) 01/16/19 17:12 AST 21 units/L (5-40) 01/16/19 17:12 ALT 22 units/L (7-56) 01/16/19 17:12 54 units/L (35-129) 01/16/19 17:12 292 units/L (55-170) H 01/17/19 07:21 CK-MB (CK-2) 1.5 ng/mL (0.0-4.0) 01/17/19 07:21 CK-MB (CK-2) Rel Index 0.5 (0-4) 01/17/19 07:21 < 0.010 ng/mL (0.00-0.029) 01/17/19 07:21 8.0 g/dL (6.3-8.2) 01/16/19 17:12 4.7 g/dL (3.9-5) 01/16/19 17:12 1.4 % 01/16/19 17:12 Yellow (Yellow) 01/16/19 Unknown Clear (Clear) 01/16/19 Unknown 6.0 (5.0-7.0) 01/16/19 Unknown Ur Specific [place] > 1.059 (1.003-1.030) H 01/16/19 Unknown 30 mg/dl mg/dL (Negative) 01/16/19 Unknown Neg mg/dL (Negative) 01/16/19 Unknown Tr mg/dL (Negative) 01/16/19 Unknown Neg (Negative) 01/16/19 Unknown Neg (Negative) 01/16/19 Unknown Neg (Negative) 01/16/19 Unknown < 2.0 mg/dL (<2.0) 01/16/19 Unknown Ur Leukocyte Esterase Neg (Negative) 01/16/19 Unknown 3.0 /HPF (0.0-6.0) 01/16/19 Unknown 2.0 /HPF (0.0-6.0) 01/16/19 Unknown U Epithel Cells (Auto) < 1.0 /HPF (0-13.0) 01/16/19 Unknown 2+ /HPF 01/16/19 Unknown Salicylates < 0.3 mg/dL (2.8-20.0) L 01/16/19 17:12 Presumptive positive 01/16/19 Unknown Presumptive negative 01/16/19 Unknown Acetaminophen < 5.0 ug/mL (10.0-30.0) L 01/16/19 17:12 Ur Barbiturates Screen Presumptive negative 01/16/19 Unknown Ur Phencyclidine Scrn Presumptive negative 01/16/19 Unknown Ur Amphetamines Screen Presumptive negative 01/16/19 Unknown U Benzodiazepines Scrn Presumptive negative 01/16/19 Unknown Presumptive negative 01/16/19 Unknown U Marijuana (THC) Screen Presumptive positive 01/16/19 Unknown Disclamer 01/16/19 Unknown Plasma/Serum Alcohol < 0.01 % (0-0.07) 01/16/19 17:12 Active Medications - Current Medications Current Medications: Generic Name Dose Route Start Last Admin Trade Name Freq PRN Reason Stop Dose Admin Acetaminophen 650 mg 01/16/19 21:40 Tylenol PO Q4H PRN Pain MILD(1-3)/Fever >100.5/AYON Enoxaparin Sodium 40 mg 01/17/19 10:00 01/17/19 09:50 Lovenox SUB-Q 40 mg QDAY@1000 SUE Administration Levofloxacin/Dextrose 500 mg in 100 mls @ 100 mls/hr 01/16/19 21:43 01/16/19 23:25 Levaquin 500mg/100ml IV 100 mls/hr Q24HR@2200 SUE Administration Protocol Metoclopramide HCl 10 mg 01/17/19 00:21 01/17/19 09:51 Reglan IV 10 mg Q6H PRN Administration Nausea And Vomiting Ondansetron HCl 4 mg 01/16/19 21:40 01/16/19 23:20 Zofran IV 4 mg Q8H PRN Administration Nausea And Vomiting Oxycodone/Acetaminophen 1 tab 01/16/19 21:40 01/17/19 07:56 Percocet 5/325 PO 1 tab Q4H PRN Administration Pain, Moderate (4-6) Sodium Chloride 10 ml 01/16/19 22:00 01/17/19 09:57 Sodium Chloride Flush Syringe 10 Ml IV 10 ml BID SUE Administration Sodium Chloride 10 ml 01/16/19 21:40 Sodium Chloride Flush Syringe 10 Ml IV PRN PRN LINE FLUSH
[2019-01-17] MEDS: PROTONIX IV SCH ×2 (11:12→21:28)
[2019-01-17] MEDS: LEVAQUIN 500MG/100ML 500 MG/100 ML BAG IV SCH (21:28)
[2019-01-18] MEDS: PERCOCET 5/325 PO PRN (03:02)
[2019-01-18] MEDS: REGLAN IV PRN ×2 (03:03→13:06)
[2019-01-18] MEDS: SODIUM CHLORIDE FLUSH SYRINGE 10 ML IV SCH ×2 (03:06→10:20)
[2019-01-18] MEDS: LOVENOX SUB-Q SCH (10:20)
[2019-01-18] MEDS: PROTONIX IV SCH (10:20)
--- NOTE | 2019-01-18 10:35 | Progress Note ---
Assessment and Plan 1. GERD with acute gastritis and vomiting 2. Serum troponin levels are normal EKG does not reveal any ischemic changes presentation is not consistent with acute coronary syndrome Plan. Recommend GI consult cardiac akins stable. Subjective Date of service: 01/18/19 Interval history: Patient states he feels much Objective Vital Signs Temp Pulse Resp BP Pulse Ox 01/18/19 08:24 43 L 01/18/19 04:16 98.8 F 43 L 18 112/62 95 01/18/19 03:02 20 01/18/19 01:08 48 L 01/17/19 23:40 99.1 F 46 L 18 127/81 95 01/17/19 21:30 48 L 01/17/19 21:29 20 01/17/19 19:36 99.1 F 48 L 18 129/70 100 01/17/19 17:11 99.0 F 44 L 14 137/85 97 01/17/19 12:17 98.4 F 40 L 16 135/75 99 - Physical Examination General: Appears Well, No Apparent Distress HEENT: Positive: PERRL, Mucus Membranes Moist Neck: Positive: neck supple, trachea midline Cardiac: Positive: Reg Rate and Rhythm, S1/S2 Lungs: Positive: clear to auscultation, No Wheeze, Rales, Rhonchi Neuro: Positive: Grossly Intact Abdomen: Positive: Soft, Active Bowel Sounds. Negative: Tender, Distended Skin: Positive: Clear Incision: Cardiac Cath Site Musculoskeletal: No Pain, Normal Range of Motion Extremities: Present: normal. Absent: edema - Imaging and Cardiology EKG: image reviewed - EKG Sinus rhythms and dysrhythmias: sinus rhythm
[2019-01-18 12:19] VITALS: BP 133/84
--- NOTE | 2019-01-18 15:01 | Discharge Summary ---
Providers - Providers Date of Admission: 01/17/19 18:31 Date of discharge: 01/18/19 Attending physician: SHALOM HARPER 01/16/19 17:01 Consult to Physician [CONS] Urgent Comment: Dr. Davalos spoke with Dr. Martinez @ [id number] Consulting Provider: KRISTIE MARTINEZ Physician Instructions: Reason For Exam: abnormal ekg Primary care physician: BLAYNE BRANHAM Hospitalization Condition: Fair Hospital course: Patient is 38-year-old man with history of GERD comes to the emergency room with complains of nausea, vomiting, chest pain, epigastric pain. he was seen and evaluated in ED. Troponin was normal. He was admitted to rule out acute coronary syndrome. Cardiology was consulted, He was evaluated by Dr. Kapadia who determined chest pain non cardiac, due to GERD. patient has bradycardia but asymptomatic. TSH was normal. He was then discharged home to follow with GI as outpatient. Total time spent on discharge, 33 mins Disposition: DC-01 TO HOME OR SELFCARE - Discharge Diagnoses (1) Chest pain Status: Acute (2) Sinus bradycardia Status: Acute (3) GERD (gastroesophageal reflux disease) Status: Acute (4) Bradycardia Status: Acute Core Measure Documentation - Palliative Care Palliative Care/ Comfort Measures: Not Applicable - Core Measures Any of the following diagnoses?: none Exam - Constitutional Vitals: Temp Pulse Resp BP Pulse Ox 98.3 F 43 L 18 133/84 95 01/18/19 08:32 01/18/19 08:24 01/18/19 08:32 01/18/19 08:32 01/18/19 04:16 Plan Activity: advance as tolerated Diet: regular Additional Instructions: 1.Follow up with PCP or Dr. Kellogg in 1 week. 2.Follow up with GI Physician, Dr. Won Clark in 1 week. 3.Follow up with Dr. Kapadia, cardiology in 1 week Follow up with: BLAYNE BRANHAM MD [Primary Care Provider] - 3-5 Days Forms: Work/School Release Form Prescriptions: Omeprazole 20 mg PO DAILY #30 capsule.dr Johnsonazine [Phenergan] 25 mg PO Q6HR PRN #20 tab PRN Reason: Nausea
[2019-01-18] MEDS ORDERED: PROTONIX PO SCH (22:00)
== END 2019-01-18 16:37 | disposition home or self-care (01) | DRG 392 ==
LOC: ED 16:21 → 4A 21:40 → OBSVTOIN 01-17 18:31
PROVIDERS: ADMIT Internal Medicine; ATTEND Internal Medicine
DX: K29.00 Acute gastritis without bleeding (principal); R65.10 Systemic inflammatory response syndrome (SIRS) of non-infectious origin without acute organ dysfunction; R00.1 Bradycardia, unspecified; R07.9 Chest pain, unspecified; E87.6 Hypokalemia; F12.90 Cannabis use, unspecified, uncomplicated; K21.9 Gastro-esophageal reflux disease without esophagitis; Z87.891 Personal history of nicotine dependence; Z82.49 Family history of ischemic heart disease and other diseases of the circulatory system; Z79.899 Other long term (current) drug therapy; Z71.51 Drug abuse counseling and surveillance of drug abuser
CPT/HCPCS: 36415; 71045; 74177; 80048; 80053; 80307; 80320; 81001; 82140; 82550; 82553; 83735; 84439; 84443; 84484; 85025; 85730; 87040; 93005; 93010; 96374; 99285; G0378; C9113; G0480; J1650; J1956; J2270; J2405; J2765; J3480; J7030; Q9967

== ENCOUNTER 2022-03-28 14:15 | Emergency (ER) | payer OTHER ==
[2022-03-28 14:42] VITALS: BP 100/57
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
== END 2022-03-29 08:10 | disposition home or self-care (01) ==
LOC: ED 14:15
DX: M54.9 Dorsalgia, unspecified (principal); K21.9 Gastro-esophageal reflux disease without esophagitis; V89.2XXA Person injured in unspecified motor-vehicle accident, traffic, initial encounter; Y93.89 Activity, other specified; Y92.89 Other specified places as the place of occurrence of the external cause; Y99.8 Other external cause status
CPT/HCPCS: 99282